=== PATIENT | male | born 1955 | race Caucasian/White ===

== ENCOUNTER 2018-01-27 12:37 | Day surgery (SDC) | payer BC ==
[2018-01-27] MEDS ORDERED: ATROPINE SULFATE 1 MG/10 ML SYR IVP ONE (12:43)
[2018-01-27] MEDS ORDERED: NS 500 ML IV ONE (12:43)
[2018-01-27] MEDS ORDERED: BENZOCAINE UNIT DOSE SPRAY HURRICAINE MM ONE (12:43)
[2018-01-27] MEDS ORDERED: MIDAZOLAM 2 MG/2 ML VIAL IVP ONE (12:43)
[2018-01-27] MEDS ORDERED: fentaNYL 100 MCG/2 ML INJ IVP ONE (12:43)
--- NOTE | 2018-01-27 13:02 | CPEKG ---
Heart Rate: 124 RR Interval: 484 P-R Interval: 168 QRSD Interval: 94 QT Interval: 320 QTC Interval: 460 P [place]: 268 QRS [place]: -63 T Wave [place]: 61 EKG Severity - ABNORMAL ECG - EKG Impression: LIKELY ATRIAL FLUTTER EKG Impression: LEFT ANTERIOR FASCICULAR BLOCK EKG Impression: ST DEPRESSION, CONSIDER ISCHEMIA, INF LEADS EKG Impression: COMPARED WITH 09/25/2015 ATRIAL FLUTTER NOW NOTED Electronically Signed By: Naomie Martinez 28-Jan-2018 08:29:51
[2018-01-27 13:36] LABS: INR 1.09 (0.83-1.16); PROTIME(PATIENT) 14.3 SEC (12.0-15.0)
[2018-01-27] MEDS ORDERED: PROPOFOL 200 MG/20 ML VIAL ONE (13:57)
--- NOTE | 2018-01-27 14:00 | PDANEPAE ---
ANE History of Present Illness a. fib ANE Past Medical History - Cardiovascular History Hx Hypertension: No Hx Arrhythmias: Yes Hx Chest Pain: No Hx Coronary Artery / Peripheral Vascular Disease: Yes Hx CHF / Valvular Disease: No Hx Palpitations: Yes - Pulmonary History Hx COPD: No Hx Asthma/Reactive Airway Disease: No Hx Recent Upper Respiratory Infection: No Hx Oxygen in Use at Home: No Hx Sleep Apnea: No - Endocrine History Hx Diabetes: No Obesity: no ANE Review of Systems Review of systems is: negative Review of Systems: - Exercise capacity Exercise capacity: >=4 METS ANE Patient History - Allergies Allergies/Adverse Reactions: Penicillins Allergy (Verified 09/25/15 10:35) - Home Medications Home medications: home medication list seen and reviewed Home Medications: Herbals/Supplements -Info Only 1 ea PO DAILY 09/25/15 [Last Taken Unknown] Metoprolol Tartrate [Lopressor 25 mg (*)] 25 mg PO HS 09/25/15 [Last Taken 09/18] - Anes Hx Anes Hx: no prior problems - Smoking Hx Smoking Status: Never smoked ANE Labs/Vital Signs - Labs Result Diagrams: 01/27/18 13:00 - Vital Signs Height: 203 cm Weight: 90.7 kg ANE Physical Exam - Airway Neck exam: FROM Mallampati Score: Class 1 Mouth exam: normal dental/mouth exam - Pulmonary Pulmonary: no respiratory distress - Cardiovascular Cardiovascular: regular rate and rhythym - ASA Status ASA Status: III ANE Anesthesia Plan Anesthesia Plan: GA with mask
--- NOTE | 2018-01-27 14:34 | PDHPUP ---
History & Physical Update H&P update statement: This history and physical update is based on an assessment of the patient which was completed after admission or registration (within 24 hours), but prior to the surgery/procedure. H&P update: H&P reviewed & patient examined, no change in patient's condition since H&P completed
--- NOTE | 2018-01-27 14:49 | PDTEE1 ---
SKYLAR Cardioversion Procedure Procedure: electrical cardioversion, transesophageal echo Indications: other (Atrial flutter) Consent: signed and in chart Anticoagulation: eliquis Procedural Details: Pads were placed in anterior-posterior position. SKYLAR probe was advanced and standard images obtained. There is no evidence of left atrial or left atrial appendage thrombus. Synchronized cardioversion attempt #1: other (70) Results: normal sinus rhythm Conclusions: successful SKYLAR cardioversion Patient Problems: Problems Problem Status Onset Coronary artery disease (CAD) excluded Acute PAF (paroxysmal atrial fibrillation) Acute Pneumothorax on right Acute S/P aortic valve replacement with stentless valve Acute S/P ascending aortic replacement Acute Aortic insufficiency due to bicuspid aortic valve Chronic Aortic root aneurysm Chronic Ascending aorta dilatation Chronic Dilated cardiomyopathy Chronic
--- NOTE | 2018-01-27 14:55 | POSTANESTH ---
Post Anesthetic Evaluation Cardiovascular Status: Normal, Stable Respiratory Status: Normal, Stable Level of Consciousness/Mental Status: Can Participate in Eval, Alert and Oriented Pain Control: Adequate, Prn Tx Ordered Nausea/Vomiting Control: Adequate, Prn Tx Ordered Complications Possibly Related to Anesthesia: None Noted
--- NOTE | 2018-01-27 15:06 | CPEKG ---
Heart Rate: 52 RR Interval: 1154 P-R Interval: 220 QRSD Interval: 104 QT Interval: 416 QTC Interval: 387 P [place]: 76 QRS [place]: -33 T Wave [place]: 70 EKG Severity - ABNORMAL ECG - EKG Impression: SINUS RHYTHM EKG Impression: ATRIAL PREMATURE COMPLEX EKG Impression: FIRST DEGREE AV BLOCK EKG Impression: LEFT AXIS DEVIATION EKG Impression: LOW VOLTAGE IN FRONTAL LEADS EKG Impression: ABNORMAL T, CONSIDER ISCHEMIA, ANTERIOR LEADS EKG Impression: COMPARED WITH 01/27/2018 AT 1:00 P.M., ATRIAL ARRHYTHMIA HAS RESOLVED Electronically Signed By: Naomie Martinez 28-Jan-2018 08:29:13
--- NOTE | 2018-01-27 16:30 | ECHO ---
[email or web address] [address] Main: [phone] Fax: Transesophageal Echocardiography Name: SUMA MARTINEZ MR#: [id number] Study Date: 01/27/2018 Study Time: 02:07 PM Date of : 1955 Age: 62 year(s) Height: ( ) Weight: ( ) BSA: Gender: Male Examination: SKYLAR Indication: A FIB Image Quality: Contrast: Requested by: Kodak Feng Heart Rate: Rhythm: BP: 118 mmHg/80 mmHg Procedure Staff Sliding Joint Maker: Mandi Bernal [facility] Reading Physician: Kodak Feng MD Requesting Provider: Kodak Feng MD SKYLAR Exam Details Patient Consent: Risks, alternatives of procedure explained to patient, informed consent obtained. Conclusions: The patient was in atrial flutter at the time of the study. Normal left ventricular size and systolic function. LV EF estimated at 55-60% with normal wall motion. Bioprosthetic aortic valve which is well seated with no significant stenosis or insufficiency. Normal appearing mitral valve with [id number] mitral regurgitation. Normal right-sided chamber dimensions and function. Trivial tricuspid regurgitation. Intact interatrial septum on color flow Doppler. Ligated atrial appendage. Immediately following the procedure the patient underwent cardioversion. Measurements: Chambers Valvular Assessment AV/MV Valvular Assessment TV/PV Normal Normal Normal Name Value Range Name Value Range Name Value Range Visual EF: 55 % Additional Measurements: Findings: Left Ventricle: Normal size left ventricle. No LV hypertrophy. Normal global systolic LV function. The ejection fraction is visually estimated to be 55 %. No regional wall motion abnormality. Unable to assess diastolic dysfunction. Right Ventricle: Normal size right ventricle. Patient: SUMA MARTINEZ Study Date: 01/27/2018 Page 1 of 2 02:07 PM Left Atrium: The left atrium is normal in size. The KIMO appears to be oversewn. Right Atrium: The right atrium is normal in size. Mitral Valve: The mitral valve is normal in appearance and function. Mild to moderate mitral regurgitation. No mitral stenosis is present. Aortic Valve: The aortic valve is a bioprosthesis. The prosthetic aortic valve is normal. No prosthesis regurgitation. Tricuspid Valve: The tricuspid valve is normal in appearance and function. Mild tricuspid regurgitation is present. Pulmonic Valve: The pulmonic valve is normal in appearance and function. Aorta: The aorta is normal. Pericardium: No pericardial effusion. l1n (No Signature Object) Patient: SUMA MARTINEZ Study Date: 01/27/2018 Page 2 of 2 02:07 PM [id number]
== END 2018-01-27 16:19 | disposition home or self-care (01) ==
LOC: FCATH 12:37
PROVIDERS: ATTEND Internal Medicine Cardiovascular Disease
PROC: B245ZZ4 Ultrasonography of Left Heart, Transesophageal (ICD-10-PCS; principal; 2018-01-27)
PROC: 5A2204Z Restoration of Cardiac Rhythm, Single (ICD-10-PCS; principal; 2018-01-27)
DX: I48.91 Unspecified atrial fibrillation (principal); I71.9 Aortic aneurysm of unspecified site, without rupture; Q23.1 Congenital insufficiency of aortic valve; Z95.4 Presence of other heart-valve replacement; Z79.01 Long term (current) use of anticoagulants
CPT/HCPCS: J2704